=== PATIENT | male | born 1980 | race Caucasian/White ===

== ENCOUNTER → 2023-08-25 | Outpatient (CLI) | payer OTHER, SELFPAY ==
--- NOTE | 2023-08-25 | LES_PTH ---
PATIENT: LORENZO RIBEIRO LOC: [facility] U#:[id number] AGE/SX: 43/M ROOM: RE08/25/[address]: Dr. 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 See comment. REJI/ 08/27/2023 COMMENT The lesion appears to have been completely excised in the planes examined. Case has been reviewed in consultation with Dr. Grace who concurs with the above diagnosis. IDC:[id number] MICROSCOPIC DESCRIPTION Slides are reviewed. GROSS DESCRIPTION Received in fixative is one container labeled with the patient's name and designated Lesion nasal columella. The specimen consists of a piece of durant-white skin measuring 0.6 x 0.3 x 0.3cm. This specimen is inked, bisected and submitted entirely in one cassette. LEO/ 08/26/2023 TC:5 CPT:34663
== END | disposition home or self-care (01) ==
LOC: LABSPEC 15:37
PROVIDERS: Referring Provider Otolaryngology; Visit Provider Otolaryngology
DX: J34.2 Deviated nasal septum (principal); L57.0 Actinic keratosis; L85.9 Epidermal thickening, unspecified
CPT/HCPCS: 88305